=== PATIENT | male | born 1970 | race American Indian/Alaskan Native ===

== ENCOUNTER 2019-09-14 11:32 | Emergency (ER) | payer SELFPAY ==
--- NOTE | 2019-09-14 12:26 | Emergency Department Report ---
Blank Doc - Documentation Documentation: 49-year-old male that presents with URI, n/v, and blurry vision. This initial assessment/diagnostic orders/clinical plan/treatment(s) is/are subject to change based on patient's health status, clinical progression and re- assessment by fellow clinical providers in the ED. Further treatment and workup at subsequent clinical providers discretion. Patient/guardians urged not to elope from the ED as their condition may be serious if not clinically assessed and managed. Initial orders include: 1- Patient sent to [facility] for further evaluation and treatment 2- labs 3- flu wab 4- cxr
[2019-09-14 12:28] VITALS: BP 167/94
--- NOTE | 2019-09-14 12:56 | XRay Report ---
CHEST 2 VIEWS INDICATION / CLINICAL INFORMATION: cough. COMPARISON: None available. FINDINGS: SUPPORT DEVICES: None. HEART / MEDIASTINUM: No significant abnormality. LUNGS / PLEURA: No significant pulmonary or pleural abnormality. No pneumothorax. ADDITIONAL FINDINGS: No significant additional findings. IMPRESSION: 1. No acute findings. Signer Name: Charles Pedraza MD Signed: 09/14/2019 12:51 PM Workstation Name: [id number]
--- NOTE | 2019-09-14 14:16 | Emergency Department Report ---
Chief Complaint: Upper Respiratory Infection Stated Complaint: V/CP/COUGH/DOUBLE VISION Time Seen by Provider: 09/14/19 12:25 - HPI History of Present Illness: 49-year-old -[place]os[place] male reports that he had a fever 2 days ago reports that he had chest pain 2 days ago but that has resolved reports that he had a cough but he has been taking NyQuil which she reports has helped. Patient states that he had vomited a few days ago but that has improved. Patient rep orts some mild weakness. [place] - Exam Vital Signs: Vital Signs 09/14/19 12:26 Temperature 97.9 F Pulse Rate 85 Respiratory 18 Rate Blood Pressure 167/94 O2 Sat by Pulse 98 Oximetry Physical Exam: Gen: alert oriented NAD Cardic: regular rate and rhythm no murmurs appreciated Resp: Clear to auscultation bilateral no wheezing no rales or rhonchi. Abdomen: Soft nontender nondistended normal bowel sounds. Mini neuro: Alert and oriented time 3 Crainal nerve II-IIX intact MSE screening note: Focused history and physical exam performed. Due to findings the following was ordered: 49-year-old -[place]os[place] male reports that he had a fever 2 days ago reports that he had chest pain 2 days ago but that has resolved reports that he had a cough but he has been taking NyQuil which she reports has helped. Patient states that he had vomited a few days ago but that has improved. Patient reports some mild weakness. Patient concerned [place]. Patient has a negative flu negative chest x-ray vital signs are within normal limits. Chest 6 exam is negative for any affectation sounds. Recommend patient to take [id number]-[id number] Zyrtec's or Claritin. ED Medical Decision Making - Radiology Data Radiology results: report reviewed Patient: ARNOLDO GRAY MR#: [id number] : 1970 Acct:[id number] Age/Sex: 49 / M ADM Date: 09/14/19 Loc: ED Attending Dr: Ordering Physician: GURVINDER HILLMAN NP Date of Service: 09/14/19 Procedure(s): XR chest routine 2V Accession Number(s): [id number] cc: GURVINDER HILLMAN NP Fluoro Time In Minutes: CHEST 2 VIEWS INDICATION / CLINICAL INFORMATION: cough. COMPARISON: None available. FINDINGS: SUPPORT DEVICES: None. HEART / MEDIASTINUM: No significant abnormality. LUNGS / PLEURA: No significant pulmonary or pleural abnormality. No pneumothorax. ADDITIONAL FINDINGS: No significant additional findings. IMPRESSION: 1. No acute findings. Signer Name: Charles Pedraza MD Signed: 09/14/2019 12:51 PM Workstation Name: [id number] Transcribed By: AUDREY Dictated By: Charles Pedraza MD Electronically Authenticated By: Charles Pedraza MD Signed Date/Time: 09/14/191250 DD/ 50 TD/TT: ED Disposition for MSE Disposition: Z MED SCREENING EXAM-LEFT Is pt being admited?: No Does the pt Need Aspirin: No Condition: Stable Additional Instructions: Recommend taking [id number] Claritin or Zyrtec's. Follow-up with your primary care provider. Referrals: PRIMARY CAREMD [Primary Care Provider] - 3-5 Days Forms: Work/School Release Form(ED)
[2019-09-14 14:17] LABS: Hematocrit 42.6 % (35.5-45.6); Hemoglobin 14.9 gm/dl (11.8-15.2); Mean Corpuscular HGB Conc 35 % (32-34); Mean Corpuscular Volume 90 fl (84-94); Platelet Count 342 K/mm3 (140-440); Red Blood Count 4.76 M/mm3 (3.65-5.03)
[2019-09-14 14:20] LABS: Alanine Aminotransferase 26 units/L (7-56); Albumin 4.2 g/dL (3.9-5); BUN/Creatinine Ratio 6; Blood Urea Nitrogen 7 mg/dL (9-20); Calcium 9.2 mg/dL (8.4-10.2); Hemolysis Index 10
[2019-09-14 16:02] LABS: Basophils % (Manual) 0 % (0.0-1.8); Eosinophils % (Manual) 0 % (0.0-4.3); Platelet Estimate Consistent w Auto; Total Cells Counted 100
== END 2019-09-14 14:26 | disposition left against medical advice (07) ==
LOC: ED 11:32
DX: R07.89 Other chest pain (principal); R05 Cough; R53.1 Weakness; R50.9 Fever, unspecified; I10 Essential (primary) hypertension; Z90.49 Acquired absence of other specified parts of digestive tract
CPT/HCPCS: 36415; 71046; 80053; 85007; 85025; 87400

== ENCOUNTER 2019-12-01 15:49 | Emergency (ER) | payer SELFPAY ==
[2019-12-01 15:56] VITALS: BP 186/105
[2019-12-01] MEDS ORDERED: diphenhydrAMINE 50 MG/ML VIAL IV ONE (16:13)
[2019-12-01] MEDS ORDERED: dexAMETHasone 20 MG/5 ML VIAL IV ONE (16:13)
[2019-12-01] MEDS ORDERED: SODIUM CHLORIDE 0.9% 1000 ML 1,000 ML IV ONE (16:13)
[2019-12-01] MEDS ORDERED: FAMOTIDINE 20 MG/2 ML INJ IV ONE (16:13)
--- NOTE | 2019-12-01 16:55 | Emergency Department Report ---
ED Allergic Reaction HPI - General Chief complaint: Skin Rash Stated complaint: ALLERGIC REACTION Time Seen by Provider: 12/01/19 16:13 Source: patient Mode of arrival: Ambulatory Limitations: No Limitations - History of Present Illness Initial Comments: This is a 49-year-old male nontoxic, well nourished in appearance, no acute signs of distress presents to the ED with c/o of facial itching and rash. Patient states he is not sure what he has allergies to. Patient states it is itching and redness. Patient denies any drooling, hoarseness or facial swelling. Patient denies any trauma. She denies any fever, chills, nausea, vomiting, chest pain, shortness of breath, headache, stiff neck, numbness or tingling. Patient states allergies to penicillin. MD Complaint: allergic reaction -: days(s) Exposure: unknown Symptoms: rash, itching. denies: facial swelling, lip swelling, difficulty swallowing, difficulty breathing, orolingual swelling, hoarseness, syncopy, dizziness, nausea, vomiting, abdominal pain Severity: mild Treatment Prior to Arrival: none Previous Allergy History: none - Related Data Previous Rx's Medication Instructions Recorded Last Taken Type diphenhydrAMINE [Benadryl CAP] 25 mg PO Q8H PRN #12 capsule 12/01/19 Unknown Rx Allergies Allergy/AdvReac Type Severity Reaction Status Date / Time Penicillins Allergy Unknown Verified 12/01/19 15:52 ED Review of Systems ROS: Stated complaint: ALLERGIC REACTION Other details as noted in HPI Constitutional: denies: chills, fever Eyes: denies: eye pain, eye discharge, vision change ENT: denies: ear pain, throat pain Respiratory: denies: cough, shortness of breath, wheezing Cardiovascular: denies: chest pain, palpitations Endocrine: no symptoms reported Gastrointestinal: denies: abdominal pain, nausea, diarrhea Genitourinary: denies: urgency, dysuria Musculoskeletal: denies: back pain, joint swelling, arthralgia Skin: rash. denies: lesions Neurological: denies: headache, weakness, paresthesias Psychiatric: denies: anxiety, depression Hematological/Lymphatic: denies: easy bleeding, easy bruising ED Past Medical Hx - Past Medical History Previous Medical History?: Yes Hx Hypertension: Yes - Surgical History Past Surgical History?: Yes Hx Appendectomy: Yes - Social History Smoking Status: Current Every Day Smoker Substance Use Type: Alcohol - Medications Home Medications: Home Medications Medication Instructions Recorded Confirmed Last Taken Type diphenhydrAMINE [Benadryl CAP] 25 mg PO Q8H PRN #12 capsule 12/01/19 Unknown Rx ED Physical Exam - General Limitations: No Limitations General appearance: alert, in no apparent distress - Head Head exam: Present: atraumatic, normocephalic - ENT ENT exam: Present: normal exam, normal orophraynx, other (uvula midline. no angioedema.) - Neck Neck exam: Present: normal inspection, full ROM. Absent: lymphadenopathy - Respiratory Respiratory exam: Present: normal lung sounds bilaterally. Absent: respiratory distress, wheezes, rales, rhonchi, stridor, chest wall tenderness, accessory muscle use, decreased breath sounds, prolonged expiratory - Cardiovascular Cardiovascular Exam: Present: regular rate, normal rhythm, normal heart sounds. Absent: irregular rhythm, systolic murmur, diastolic murmur, rubs, gallop - Extremities Exam Extremities exam: Present: normal inspection, full ROM - Back Exam Back exam: Present: normal inspection, full ROM - Neurological Exam Neurological exam: Present: alert, oriented X3 - Psychiatric Psychiatric exam: Present: normal affect, normal mood - Skin Skin exam: Present: warm, dry, intact, normal color, rash. Absent: cyanosis, diaphoretic, erythema, urticaria, vesicles, petechiae, pallor, abrasion, ecchymosis ED Course Vital Signs 12/01/19 15:55 Temperature 99.1 F Pulse Rate 94 H Respiratory 18 Rate Blood Pressure 186/105 O2 Sat by Pulse 97 Oximetry - Reevaluation(s) Reevaluation #1: 12/01/19 16:54 Patient is speaking in full sentences with no signs of distress noted. ED Medical Decision Making - Medical Decision Making This is a 49-year-old male that presents with allergic reaction. Patient is stable was examined by me. There is no facial swelling. No angioedema. There is no cellulitis. No hoarseness. Patient received 1 L normal saline, Benadryl, Decadron, and Pepcid in the ED IV. Patient was instructed not to operate any machinery after discharge due to possible drowsiness of Benadryl. Patient stated that a family member will drive patient home after discharge. Patient is discharged with prednisone and Benadryl. Patient was referred to Follow-up with a primary care doctor in 3-5 days or if symptoms worsen and continue return to emergency room as soon as possible. At time of discharge, the patient does not seem toxic or ill in appearance. No acute signs of distress noted. Patient agrees to discharge treatment plan of care. No further questions noted by the patient. Critical care attestation.: If time is entered above; I have spent that time in minutes in the direct care of this critically ill patient, excluding procedure time. ED Disposition Clinical Impression: Allergic reaction Qualifiers: Encounter type: initial encounter Qualified Code(s): T78.40XA - Allergy, unspecified, initial encounter Disposition: TO HOME OR SELFCARE Is pt being admited?: No Does the pt Need Aspirin: No Condition: Stable Instructions: Urticaria (ED) Additional Instructions: Follow-up with a primary care doctor in 3-5 days or if symptoms worsen and continue return to emergency room as soon as possible. Prescriptions: diphenhydrAMINE [Benadryl CAP] 25 mg PO Q8H PRN #12 capsule PRN Reason: Rash Referrals: PRIMARY CAREMD [Referring] - 3-5 Days NOEMI PENNINGTON MD [Staff Physician] - 3-5 Days Forms: Work/School Release Form(ED)
== END 2019-12-01 17:43 | disposition home or self-care (01) ==
LOC: ED 15:49
DX: T78.40XA Allergy, unspecified, initial encounter (principal); I10 Essential (primary) hypertension; F17.200 Nicotine dependence, unspecified, uncomplicated; Z79.899 Other long term (current) drug therapy; Z88.0 Allergy status to penicillin; Z90.49 Acquired absence of other specified parts of digestive tract; X58.XXXA Exposure to other specified factors, initial encounter
CPT/HCPCS: 96374; 96375; 99282; J1100; J1200; J7030

== ENCOUNTER 2019-12-08 10:36 | Emergency (ER) | payer SELFPAY ==
[2019-12-08 11:35] VITALS: BP 194/106
== END 2019-12-08 12:05 | disposition home or self-care (01) ==
LOC: ED 10:36
DX: T78.40XA Allergy, unspecified, initial encounter (principal); R21 Rash and other nonspecific skin eruption; Y92.89 Other specified places as the place of occurrence of the external cause
CPT/HCPCS: 99282

== ENCOUNTER 2020-06-03 10:23 | Emergency (ER) | payer SELFPAY ==
[2020-06-03 10:39] VITALS: BP 158/99
--- NOTE | 2020-06-03 10:57 | XRay Report ---
LEFT HAND 3 VIEWS INDICATION: PAIN /SWELLING. COMPARISON: None. IMPRESSION: Minimally displaced fracture is identified in the fifth metacarpal neck. There appears t o be mild comminution at the fracture site. The remaining bony structures are intact. No joint pathol ogy is noted. Mild soft tissue swelling. Signer Name: Ian Perea Jr, MD Signed: 06/03/2020 10:53 AM Workstation Name: [id number]
--- NOTE | 2020-06-03 11:09 | Emergency Department Report ---
ED General Adult HPI - General Chief complaint: Extremity Injury, Upper Stated complaint: LEFT HAND WORK INJURY/TODAY Time Seen by Provider: 06/03/20 10:32 Source: patient Mode of arrival: Ambulatory Limitations: No Limitations - History of Present Illness Initial comments: 49-year-old -[place]oven[place] male patient presents with complaints of left hand pain and swelling after an injury today. Patient states while at work, a coworker accidentally dropped a pallet onto his hand. He rates his current pain as a 6/10 in severity and states it only occurs with movement and to touch. He denies any redness, numbness/tingling/weakness, or difficulty moving the hand. - Related Data Previous Rx's Medication Instructions Recorded Last Taken Type diphenhydrAMINE [Benadryl CAP] 25 mg PO Q8H PRN #12 capsule 12/01/19 Unknown Rx Clindamycin [Clindamycin CAP] 300 mg PO Q8H #21 cap 12/08/19 Unknown Rx predniSONE [Deltasone] 20 mg PO QDAY #5 tab 12/08/19 Unknown Rx Acetaminophen/Codeine [Tylenol 1 tab PO Q8H PRN #12 tab 06/03/20 Unknown Rx /Codeine # 3 tab] Diclofenac Sodium 50 mg PO TID PRN #21 tablet. 06/03/20 Unknown Rx lisinopriL [Zestril TAB] 20 mg PO QDAY 30 Days #30 tablet 06/03/20 Unknown Rx Allergies Allergy/AdvReac Type Severity Reaction Status Date / Time No Known Allergies Allergy Unverified 06/03/20 10:24 ED Review of Systems ROS: Stated complaint: LEFT HAND WORK INJURY/TODAY Other details as noted in HPI Constitutional: denies: malaise Musculoskeletal: joint swelling, arthralgia Skin: denies: change in color Neurological: denies: numbness, paresthesias Hematological/Lymphatic: denies: easy bruising ED Past Medical Hx - Past Medical History Hx Hypertension: Yes - Surgical History Hx Appendectomy: Yes - Social History Smoking Status: Never Smoker Substance Use Type: None - Medications Home Medications: Home Medications Medication Instructions Recorded Confirmed Last Taken Type diphenhydrAMINE [Benadryl CAP] 25 mg PO Q8H PRN #12 capsule 12/01/19 Unknown Rx Clindamycin [Clindamycin CAP] 300 mg PO Q8H #21 cap 12/08/19 Unknown Rx predniSONE [Deltasone] 20 mg PO QDAY #5 tab 12/08/19 Unknown Rx Acetaminophen/Codeine [Tylenol 1 tab PO Q8H PRN #12 tab 06/03/20 Unknown Rx /Codeine # 3 tab] Diclofenac Sodium 50 mg PO TID PRN #21 tablet. 06/03/20 Unknown Rx lisinopriL [Zestril TAB] 20 mg PO QDAY 30 Days #30 tablet 06/03/20 Unknown Rx ED Physical Exam - General Limitations: No Limitations General appearance: alert, in no apparent distress - Head Head exam: Present: atraumatic, normocephalic - Eye Eye exam: Present: normal appearance - Neck Neck exam: Present: normal inspection - Respiratory Respiratory exam: Absent: respiratory distress - Cardiovascular Cardiovascular Exam: Present: regular rate - Extremities Exam Extremities exam: Present: other (Tenderness to palpation noted over the left fourth and fifth mid/distal metacarpals with mild swelling; no bruising or erythema noted; normal perfusion and range of motion of the hand is noted) - Neurological Exam Neurological exam: Present: alert, oriented X3 - Psychiatric Psychiatric exam: Present: normal affect, normal mood - Skin Skin exam: Present: warm, dry, intact, normal color. Absent: rash ED Course Vital Signs 06/03/20 10:28 Temperature 98.3 F Pulse Rate 89 Respiratory 19 Rate Blood Pressure 158/99 O2 Sat by Pulse 90 Oximetry - Procedure Description Procedures done: Patient placed in ulnar gutter splint. He tolerated procedure well. Normal perfusion and sensation of the fingers noted post splint application. He denies any discomfort ED Medical Decision Making - Radiology Data Radiology results: report reviewed LEFT HAND 3 VIEWS INDICATION: PAIN /SWELLING. COMPARISON: None. IMPRESSION: Minimally displaced fracture is identified in the fifth metacarpal neck. There appears to be mild comminution at the fracture site. The remaining bony structures are intact. No joint pathology is noted. Mild soft tissue swelling. - Medical Decision Making 49-year-old -[place] male patient presents with complaints of left hand pain and swelling after an injury today. Patient states while at work, a coworker accidentally dropped a pallet onto his hand. He rates his current pain as a 6/10 in severity and states it only occurs with movement and to touch. He denies any redness, numbness/tingling/weakness, or difficulty moving the hand. X-ray shows minimally displaced distal fifth metacarpal neck fracture. Patient placed in an ulnar gutter splint. Patient instructed to follow-up with orthopedics within 2 to 3 days. He is well-appearing, his vitals are normal, he is stable for discharge home. Strict return precautions discussed in detail with patient who verbalizes understanding. Patient also requesting lisinopril 20 mg refill. He states he has been taking this medication for 4 years and denies any prior issues with it. He states he has been out of his medication for 1 week and is unable to get into see his primary care doctor for another month. Refill given. Discussed signs and symptoms of angioedema, cough, and strict return precautions regarding this medication in detail with patient who verbalized understanding. Critical care attestation.: If time is entered above; I have spent that time in minutes in the direct care of this critically ill patient, excluding procedure time. ED Disposition Clinical Impression: Medication refill Fracture of fifth metacarpal bone Qualifiers: Encounter type: initial encounter Fracture type: closed Metacarpal location: neck Fracture alignment: displaced Laterality: left Qualified Code(s): S62.337A - Displaced fracture of neck of fifth metacarpal bone, left hand, initial encounter for closed fracture Disposition: DC-01 TO HOME OR SELFCARE Is pt being admited?: No Condition: Stable Instructions: Cast or Splint Care, Adult, [id number]-[id number], Metacarpal Fracture, Lisinopril tablets Prescriptions: Diclofenac Sodium 50 mg PO TID PRN #21 tablet. PRN Reason: Pain, Moderate (4-6) Acetaminophen/Codeine [Tylenol /Codeine # 3 tab] 1 tab PO Q8H PRN #12 tab PRN Reason: Pain , Severe (7-10) lisinopriL [Zestril TAB] 20 mg PO QDAY 30 Days #30 tablet Referrals: [facility] [Provider Group] - 2-3 Days Forms: Work/School Release Form(ED)
== END 2020-06-03 13:01 | disposition home or self-care (01) ==
LOC: ED 10:23
DX: S62.337A Displaced fracture of neck of fifth metacarpal bone, left hand, initial encounter for closed fracture (principal); I10 Essential (primary) hypertension; Z79.899 Other long term (current) drug therapy; Z90.49 Acquired absence of other specified parts of digestive tract; Z76.0 Encounter for issue of repeat prescription; X58.XXXA Exposure to other specified factors, initial encounter; Y93.89 Activity, other specified; Y92.89 Other specified places as the place of occurrence of the external cause; Y99.0 Civilian activity done for income or pay